=== PATIENT | male | born 1965 | race Two or more races ===

== ENCOUNTER 2021-06-19 22:10 | Emergency (ER) | payer MEDICAID, OTHER ==
[~2021-06-19] VITALS: Ht 177.8 cm; Wt 84.6 kg
[2021-06-19 23:27] VITALS: BP 114/84
[2021-06-20] MEDS ORDERED: ASPI-1497 MT (00:28)
[2021-06-20] MEDS ORDERED: BENA20TA10 MT (00:28)
== END 2021-06-20 00:33 | disposition home or self-care (01) ==
LOC: ER 22:10
DX: Z76.0 Encounter for issue of repeat prescription (principal); I10 Essential (primary) hypertension; F12.10 Cannabis abuse, uncomplicated
CPT/HCPCS: 99282

== ENCOUNTER 2021-07-27 05:51 | Emergency (ER) | payer OTHER ==
[~2021-07-27] VITALS: Ht 30.5 cm; Wt 0.5 kg
[~2021-07-27 05:51] MED LIST: ASPI-1497 MT; BENA20TA10 MT
[2021-07-27] MEDS ORDERED: KETOROLAC 60MG/2ML VIAL IM SCH (07:45)
[2021-07-27] MEDS ORDERED: ACETAMINOPHEN 325MG TABLET PO SCH (07:45)
[2021-07-27 08:24] LABS: BASOPHILS % 0.8 % (0.0-2.0); EOSINOPHILS % 1.8 % (0.0-5.0); HEMATOCRIT. 45.1 % (42.0-52.0); HEMOGLOBIN. 15.1 g/dL (14.0-18.0); MEAN CORPUSCULAR HEMOGLOBIN 31.8 pg (28.0-32.0); MEAN CORPUSCULAR VOLUME 95.2 fL (80.0-94.0); MEAN PLATELET VOLUME 7.9 fl (7.4-10.4); MONOCYTES % 12.9 % (2.0-8.0); NEUTROPHILS % 70.5 % (40.0-76.0); PLATELET 243 x1000/uL (130-400); RED BLOOD CELL COUNT 4.74 mill/uL (4.7-6.1); RED CELL DISTRIBUTION WIDTH 14.5 % (11.6-14.6)
[2021-07-27 08:31] LABS: CHLORIDE 104 mEq/L (98-107)
[2021-07-27 11:50] VITALS: BP 148/93
[2021-07-27] MEDS ORDERED: ACET-2708 MT (12:08)
== END 2021-07-27 13:03 | disposition home or self-care (01) ==
LOC: ER 05:51
DX: M75.01 Adhesive capsulitis of right shoulder (principal)
CPT/HCPCS: 36415; 71045; 73030; 80053; 84484; 85025; 96372; 99284; J1885; A4565

== ENCOUNTER 2023-02-19 07:17 | Emergency (ER) | payer MEDICAID ==
[~2023-02-19] VITALS: Ht 180.3 cm; Wt 83.5 kg
[~2023-02-19 07:17] MED LIST changes: +ACET-2708 MT; +BENA-8 MT; -BENA20TA10 MT
[2023-02-19 07:39] VITALS: BP 126/85; PULSE 85; RESP 16; TEMP 98.6; O2SAT 100
== END 2023-02-19 07:39 | disposition left against medical advice (07) ==
LOC: ER 07:23
DX: Z53.21 Procedure and treatment not carried out due to patient leaving prior to being seen by health care provider (principal)
CPT/HCPCS: 99281